=== PATIENT | female | born 1970 | race Caucasian/White ===

== ENCOUNTER 2016-09-10 18:44 | Emergency (ER) | payer MEDICAID ==
[~2016-09-10] VITALS: Ht 165.1 cm; Wt 65.8 kg
[2016-09-10 19:17] VITALS: BP 161/93
== END 2016-09-10 21:01 | disposition home or self-care (01) ==
LOC: ED 18:44
DX: S52.121A Displaced fracture of head of right radius, initial encounter for closed fracture (principal); W18.30XA Fall on same level, unspecified, initial encounter; Y93.89 Activity, other specified; Y99.8 Other external cause status; Y92.89 Other specified places as the place of occurrence of the external cause

== ENCOUNTER 2017-04-17 07:15 | Emergency (ER) | payer SELFPAY ==
[~2017-04-17] VITALS: Ht 154.9 cm; Wt 68.2 kg
[2017-04-17 08:11] LABS: PLATELET COUNT 294 x10^3mcL (130-400); RED CELL DISTRIBUTION WIDTH 14.2 % (11.5-14.5)
[2017-04-17 08:14] LABS: BASOPHIL % 2.1 % (0-2)
[2017-04-17 08:25] LABS: ALBUMIN 3.6 g/dL (3.4-5.0); ALKALINE PHOSPHATASE 87 U/L (46-116); ALT/SGPT 25 U/L (14-59); AST/SGOT 14 U/L (15-37); BILIRUBIN TOTAL 0.5 mg/dL (0.20-1.00); CALCIUM 8.8 mg/dL (8.5-10.1); CARBON DIOXIDE 28.1 mmol/L (21-32); CHLORIDE SERUM 101 mmol/L (98-107); CREATININE SERUM 0.7 mg/dL (0.6-1.0); GFR1 > 60 mL/min; GLUCOSE SERUM 86 mg/dL (74-106); LIPASE 90 IU/L (73-393); POTASSIUM SERUM 3.7 mmol/L (3.5-5.1); SODIUM SERUM 137 mmol/L (136-145); TOTAL PROTEIN, SERUM 7.1 g/dL (6.4-8.2)
[2017-04-17 09:31] VITALS: BP 105/79
== END 2017-04-17 09:31 | disposition home or self-care (01) ==
LOC: ED 07:15
PROVIDERS: Emergency Medicine
DX: R10.13 Epigastric pain (principal)
CPT/HCPCS: 36415; Q0092; Q0162

== ENCOUNTER 2017-05-04 05:47 | Emergency (ER) | payer SELFPAY ==
[2017-05-04 07:23] VITALS: BP 124/80
== END 2017-05-04 07:46 | disposition home or self-care (01) ==
LOC: ED 05:47
DX: M54.40 Lumbago with sciatica, unspecified side (principal)
CPT/HCPCS: J2270; J2405

== ENCOUNTER 2017-09-08 13:18 | Emergency (ER) | payer SELFPAY ==
[~2017-09-08] VITALS: Ht 154.9 cm; Wt 651.4 kg
[2017-09-08 15:53] VITALS: BP 121/78
== END 2017-09-08 15:53 | disposition home or self-care (01) ==
LOC: ED 13:18
DX: S16.1XXA Strain of muscle, fascia and tendon at neck level, initial encounter (principal); V49.9XXA Car occupant (driver) (passenger) injured in unspecified traffic accident, initial encounter; Y93.89 Activity, other specified; Y92.89 Other specified places as the place of occurrence of the external cause; Y99.8 Other external cause status
CPT/HCPCS: J1885